=== PATIENT | female | born 1980 | race Caucasian/White ===

== ENCOUNTER 2017-07-13 11:27 | Emergency (ER) | payer OTHER ==
[~2017-07-13 11:27] MED LIST: ALBU1AER INH; AZEL137S; FLON0.053; ORSYTAB PO
[2017-07-13 12:01] VITALS: BP 130/60; PULSE 88; RESP 20; TEMP 98; O2SAT 98
[2017-07-13] MEDS ORDERED: ORPHENADRINE INJ 60 MG/2 ML AMP IM ONE (12:45)
[2017-07-13] MEDS ORDERED: KETOROLAC TROMETHAMINE 60 MG/2 ML (IM) VIAL IM ONE (12:45)
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
[2017-07-13] MEDS ORDERED: MORPHINE SULFATE 2 MG/ML INJ IM ONE (14:00)
[2017-07-13] MEDS ORDERED: ONDANSETRON ODT 4 MG TAB PO ONE (14:00)
[2017-07-13] MEDS ORDERED: HYDR-3516 PO (14:15)
[2017-07-13] MEDS ORDERED: ROBA500T PO (14:15)
[2017-07-13] MEDS ORDERED: DICL75TA PO (14:15)
== END 2017-07-13 14:46 | disposition home or self-care (01) ==
LOC: PHEFT 11:27
DX: S39.012A Strain of muscle, fascia and tendon of lower back, initial encounter (principal); M79.604 Pain in right leg; M79.605 Pain in left leg; Z86.69 Personal history of other diseases of the nervous system and sense organs; Z87.09 Personal history of other diseases of the respiratory system; X50.1XXA Overexertion from prolonged static or awkward postures, initial encounter
CPT/HCPCS: 72131; 96372; 99283; J1885; J2270; J2360

== ENCOUNTER 2018-02-11 22:22 | Observation (INO) ==
[2018-02-11] MEDS ORDERED: HYDROmorphone PF Inj 1 MG/ML Ampul IM ONE (22:55)
[2018-02-11] MEDS ORDERED: Sod Chloride 0.9% Inj 1,000 ML IV.SIG SCH (23:00)
[2018-02-11] MEDS ORDERED: HYDROmorphone PF Inj 2 MG/ML Vial IM ONE (23:15)
[2018-02-11 23:25] LABS: Baso # (Auto) 0.2 th/mm3 (0.0-0.2); Baso % (Auto) 1.4 % (0.0-2.0); Hematocrit 40.2 % (35.0-46.0); Hemoglobin 13.4 gm/dL (11.6-15.3); Lymph # (Auto) 0.5 th/mm3 (1.0-4.8); Lymph % (Auto) 3.2 % (9.0-44.0); Mean Corpuscular HGB Conc 33.2 % (32.0-36.0); Mean Corpuscular Volume 90.5 fL (80.0-100.0); Mean Platelet Volume 8.6 fL (7.0-11.0); Mono # (Auto) 0.3 th/mm3 (0.0-0.9); Mono % (Auto) 1.9 % (0.0-8.0); Neut # (Auto) 14.9 th/mm3 (1.8-7.7); Neut % (Auto) 93.5 % (16.0-70.0); Platelet Count 272 th/mm3 (150-450); Red Blood Count 4.45 mil/mm3 (4.00-5.30); Red Cell Distribution Width 12.3 % (11.6-17.2); White Blood Count 15.9 th/mm3 (4.0-11.0)
[2018-02-11 23:31] LABS: Chloride 99 meq/L (98-107); Potassium 3.8 meq/L (3.5-5.1); Sodium 134 meq/L (136-145)
[2018-02-11 23:35] LABS: Albumin 4.1 g/dL (3.4-5.0); Anion Gap 12 meq/L (5-15); Blood Urea Nitrogen 9 mg/dL (7-18); Glucose,Random 112 mg/dL (74-106)
[2018-02-11 23:37] LABS: Activated Partial Thrombo Time 26.5 sec (24.3-30.1); Prothrombin Time 10.5 sec (9.8-11.6)
[2018-02-11 23:38] LABS: Alanine Aminotransferase 21 U/L (10-53); Aspartate Aminotransferase 12 U/L (15-37); Glomerular Filtration Rate Greater Than 89 mL/min (>89)
[2018-02-11 23:39] LABS: Total Protein 7.8 g/dL (6.4-8.2)
[2018-02-11 23:41] LABS: Alkaline Phosphatase 64 U/L (45-117)
[2018-02-12] MEDS ORDERED: Bisacodyl 10 MG Supp RECTAL PRN (01:03)
[2018-02-12] MEDS ORDERED: HYDROmorphone PF Inj 2 MG/ML Vial IV.PUSH PRN (01:04)
[2018-02-12] MEDS ORDERED: Sodium Chloride 0.45 % Inj 1,000 ML IV.CONT SCH (01:15)
--- NOTE | 2018-02-12 01:20 | CT ---
EXAM DATE: 02/12/2018 12:52 AM EDT AGE/SEX: 38 years / Female INDICATIONS: Cephalgia post septoplasty. CLINICAL DATA: This is the patient's initial encounter. Patient reports that signs and symptoms have been present for 1 day and indicates a pain score of 10/10. MEDICAL/SURGICAL HISTORY: . Chondrosarcoma. Craniotomy. Septoplasty. RADIATION DOSE: 51.33 CTDI (mGy) COMPARISON: POI, MR BRAIN W AND W/O CONTRAST, 04/09/2017. . TECHNIQUE: CT of the head without contrast. Using automated exposure control and adjustment of the mA and/or kV according to patient size, radiation dose was kept as low as reasonably achievable to ob tain optimal diagnostic quality images. DICOM format image data is available electronically for revi ew and comparison. FINDINGS: Cerebrum: The ventricles are normal. There is stable encephalomalacia in the anterior right temporal lobe. No midline shift, mass lesion, hemorrhage or acute infarction. No extraaxial fluid collection s are seen. Posterior Fossa: The cerebellum and brainstem demonstrate no acute abnormality. The 4th ventricle is midline. The cerebellopontine angle is within normal limits. Extracranial: The visualized sinuses are clear. Skull: No fracture is identified. There has been prior right frontal craniotomy and right suboccipit al craniotomy. Right mastoid surgery has also been performed. There is stable appearance to the right skull base. CONCLUSION: 1. No acute intracranial abnormality is identified. 2. There are stable right skull base changes and postsurgical changes, as above. . Electronically signed by: Braden Harrison MD 02/12/2018 1:19 AM EDT
[2018-02-12 02:32] VITALS: O2SAT 97
[2018-02-12] MEDS: HYDROmorphone PF Inj 2 MG/ML Vial IV.PUSH PRN ×2 (06:20→10:26)
[2018-02-12 06:44] LABS: Chloride 103 meq/L (98-107); Potassium 3.9 meq/L (3.5-5.1); Sodium 137 meq/L (136-145)
[2018-02-12 06:47] LABS: Baso % (Auto) 0.1 % (0.0-2.0); Calcium 8.3 mg/dL (8.5-10.1); Hematocrit 32.5 % (35.0-46.0); Hemoglobin 11.6 gm/dL (11.6-15.3); Lymph # (Auto) 0.9 th/mm3 (1.0-4.8); Lymph % (Auto) 5.8 % (9.0-44.0); Mean Corpuscular HGB Conc 35.8 % (32.0-36.0); Mean Corpuscular Hemoglobin 31.5 pg (27.0-34.0); Mean Corpuscular Volume 87.8 fL (80.0-100.0); Mean Platelet Volume 8.8 fL (7.0-11.0); Mono # (Auto) 0.8 th/mm3 (0.0-0.9); Mono % (Auto) 5.2 % (0.0-8.0); Neut # (Auto) 13.6 th/mm3 (1.8-7.7); Neut % (Auto) 88.9 % (16.0-70.0); Platelet Count 208 th/mm3 (150-450); Red Cell Distribution Width 12.9 % (11.6-17.2); White Blood Count 15.3 th/mm3 (4.0-11.0)
[2018-02-12 06:48] LABS: Anion Gap 11 meq/L (5-15); Blood Urea Nitrogen 9 mg/dL (7-18); Carbon Dioxide 23.5 meq/L (21.0-32.0); Glucose,Random 117 mg/dL (74-106)
[2018-02-12 06:51] LABS: Glomerular Filtration Rate Greater Than 89 mL/min (>89)
[2018-02-12 08:24] VITALS: BP 103/62; PULSE 66; RESP 18; TEMP 96.8
[2018-02-12] MEDS ORDERED: Senna/Docusate Sodium 8.6/50 MG Tablet PO SCH (09:00)
--- NOTE | 2018-02-12 10:49 | P.HP ---
History of Present Illness Service: [facility] hospitalist Primary Care Physician: Angelika Martinez Chief Complaint: intractable nausea and pain from surgery on 02/11/18 History of Present Illness: Patient presented to er after undergoing rhinoplasty on 02/11/18 by ENT nose packing at this time,was unable to tolerate taking antibiotics or pain medication and also persistent nausea . In er had slight elevation WBC count secondary to surgery ,but did require IV hydromorph for pain and IV zofran . Admit to observation and to follow up with ent. No other significant medical issues. - Diagnosis (1) Status post rhinoplasty (2) Head and face pain (3) Nausea & vomiting Review of Systems All other systems reviewed negative except as stated in HPI PMFSH - History History Provided By: Patient - Medical History Medical History: Medical History (Last Reviewed 02/12/18 @ 10:46 by Andrew Dorman MD) History of chondrosarcoma - Surgical History Surgical History: Surgical History (Last Reviewed 02/12/18 @ 10:46 by Andrew Dorman MD) History of skin graft - Tobacco History Second Hand Smoke Exposure: No Smoking Status: Never smoker - Alcohol History How Often Do You Have a Drink Containing Alcohol: Never - Substance Use History Substance History: No History of Abuse - Travel History Recent Travel in the [place] Within the Last 8 Weeks: No Recent Travel Out of the Country Within the Last 8 Weeks: No - Immunization History Tetanus Immunization: <5 Years Medications and Allergies Active Medications: Active Medications Al Hydroxide/Mg Hydroxide (Milk Of Magnesia Liq) 30 ml PO Q12H PRN PRN Reason: Mild Constipation Bisacodyl (Dulcolax Supp) 10 mg RECTAL DAILY PRN PRN Reason: SEVERE CONSITIPATION Sodium Chloride (Ns Inj) 1,000 mls @ 0 mls/hr IV.SIG BOLUS CASH Last Infusion: 02/12/18 00:36 Dose: Infused Ceftriaxone Sodium 1,000 mg/ (Sodium Chloride) 100 mls @ 200 mls/hr IV.SIG Q12H CASH Sodium Chloride (1/2 Normal Saline Inj) 1,000 mls @ 75 mls/hr IV.CONT .[id number] CASH Last Admin: 02/12/18 02:00 Dose: 75 mls/hr Lactulose (Lactulose Liq) 30 ml PO DAILY PRN PRN Reason: SEVERE CONSITIPATION Ondansetron HCl (Zofran Inj) 4 mg IV.PUSH Q6H PRN PRN Reason: NAUSEA OR VOMITING Senna/Docusate Sodium (Haily-Colace) 1 tab PO BID CASH Last Admin: 02/12/18 09:33 Dose: Not Given Sennosides (Senokot) 17.2 mg PO Q12H PRN PRN Reason: Moderate Constipation Sodium Chloride (Ns Flush) 2 ml IV.FLUSH PRN PRN PRN Reason: FLUSH AFTER USING IV ACCESS Allergies Allergy/AdvReac Type Severity Reaction Status Date / Time No Known Allergies Allergy Unknown unknown Uncoded 02/11/18 22:29 Home Medications Medication Instructions Recorded Confirmed Type azelastine-fluticasone 1 spray INTRANASAL BID 02/11/18 02/11/18 History cefprozil 250 mg PO Q12H 02/11/18 02/11/18 History hydrocodone-acetaminophen [[place]] 1 tab PO Q4-6H PRN 02/11/18 02/11/18 History ondansetron [Zofran ODT] 4 mg PO Q6-8H PRN 02/11/18 02/11/18 History Exam Vital signs: Vital Signs 02/11/18 22:29 02/11/18 22:53 02/12/18 00:34 Temperature 98.5 F Pulse Rate 70 72 68 Respiratory Rate 18 20 18 Blood Pressure 130/82 118/81 114/72 Pulse Oximetry 100 99 95 02/12/18 02:28 02/12/18 08:00 Temperature 97.1 F L 96.8 F L Pulse Rate 68 66 Respiratory Rate 16 18 Blood Pressure 107/60 103/62 Pulse Oximetry 97 97 Intake & Output 02/11/18 02/12/18 02/12/18 18:59 06:59 18:59 Intake Total 1300 / 1300 Balance 1300 / 1300 Weight 64.9 kg Intake: IV 1100 / 1100 NS Inj 1,000 ML @ Wide Open IV. 1000 / 1000 SIG [facility] Rx#:[id number] Rocephin Inj 2,000 MG In NS Inj 100 / 100 100 ML @ 200 mls/hr IV.SIG ONCE ONE Rx#:[id number] Oral 200 / 200 Other: # Voids 3 Date of Last Bowel Movement 02/11/18 Weight On Admission 64.9 kg Narrative: GENERAL: SKIN: Warm and dry. HEAD: Normocephalic. Nose swelling packed from surgery EYES: No scleral icterus. No injection or drainage. NECK: Supple, trachea midline. No JVD or lymphadenopathy. CARDIOVASCULAR: Regular rate and rhythm without murmurs, gallops, or rubs. RESPIRATORY: Breath sounds equal bilaterally. No accessory muscle use. GASTROINTESTINAL: Abdomen soft, non-tender, nondistended. MUSCULOSKELETAL: No cyanosis, or edema. BACK: Nontender without obvious deformity. No CVA tenderness. Results - Labs CBC & Chem 7: 02/12/18 05:57 02/12/18 05:57 Labs: Laboratory Results - last 24 hr 02/11/18 02/11/18 02/11/18 23:00 23:00 23:00 CBC w Diff Auto diff final WBC 15.9 H RBC 4.45 Hgb 13.4 Hct 40.2 MCV 90.5 MCH 30.0 MCHC 33.2 RDW 12.3 Plt Count 272 MPV 8.6 Neut % (Auto) 93.5 H Lymph % (Auto) 3.2 L [place] % (Auto) 1.9 Eos % (Auto) 0.0 Baso % (Auto) 1.4 Neut # (Auto) 14.9 H Lymph # (Auto) 0.5 L [place] # (Auto) 0.3 Eos # (Auto) 0.0 Baso # (Auto) 0.2 WBC Differential . Differential Comment . PT 10.5 INR 1.0 APTT 26.5 Sodium 134 L Potassium 3.8 Chloride 99 Carbon Dioxide 23.0 Anion Gap 12 BUN 9 Creatinine 0.71 Estimated GFR Greater than 89 Random Glucose 112 H Calcium 9.0 Total Bilirubin 1.0 AST 12 L ALT 21 Alkaline Phosphatase 64 Total Protein 7.8 Albumin 4.1 02/12/18 02/12/18 05:57 05:57 CBC w Diff Auto diff final WBC 15.3 H RBC 3.70 L Hgb 11.6 Hct 32.5 L MCV 87.8 MCH 31.5 MCHC 35.8 RDW 12.9 Plt Count 208 MPV 8.8 Neut % (Auto) 88.9 H Lymph % (Auto) 5.8 L [place] % (Auto) 5.2 Eos % (Auto) 0.0 Baso % (Auto) 0.1 Neut # (Auto) 13.6 H Lymph # (Auto) 0.9 L [place] # (Auto) 0.8 Eos # (Auto) 0.0 Baso # (Auto) 0.0 WBC Differential . Differential Comment . PT INR APTT Sodium 137 Potassium 3.9 Chloride 103 Carbon Dioxide 23.5 Anion Gap 11 BUN 9 Creatinine 0.61 Estimated GFR Greater than 89 Random Glucose 117 H Calcium 8.3 L Total Bilirubin AST ALT Alkaline Phosphatase Total Protein Albumin - Imaging Impressions Head CT 02/12/18 00:35 CONCLUSION: 1. No acute intracranial abnormality is identified. 2. There are stable right skull base changes and postsurgical changes, as above. . Caprini VTE Risk Assessment Caprini VTE Risk Assessment: No/Low Risk (score <= 1) Caprini Risk Assessment Model: Point Value = 1 Point Value = 2 Point Value = 3 Point Value = 5 Age 41-60 Minor surgery BMI > 25 kg/m2 Swollen legs Varicose veins or History of unexplained or recurrent spontaneous Oral contraceptives or hormone replacement Sepsis (< 1 month) Serious lung disease, including pneumonia (< 1 month) Abnormal pulmonary function Acute myocardial infarction Congestive heart failure (< 1 month) History of inflammatory bowel disease Medical patient at bed rest Age 61-74 Arthroscopic surgery Major open surgery (> 45 min) Laparoscopic surgery (> 45 min) Malignancy Confined to bed (> 72 hours) Immobilizing plaster cast Central venous access Age >= 75 History of VTE Family history of VTE Factor V Leiden Prothrombin [id number] Lupus anticoagulant Anticardiolipin antibodies Elevated serum homocysteine Heparin-induced thrombocytopenia Other congenital or acquired thrombophilia Stroke (< 1 month) Elective arthroplasty Hip, pelvis, or leg fracture Acute spinal cord injury (< 1 month) Prophylaxis Regimen: Total Risk Factor Score Risk Level Prophylaxis Regimen 0-1 Low Early ambulation 2 Moderate Order ONE of the following: *Sequential Compression Device (SCD) *Heparin 5000 units SQ BID 3-4 Higher Order ONE of the following medications: *Heparin 5000 units SQ TID *Enoxaparin/Lovenox 40 mg SQ daily (WT < 150 kg, CrCl > 30 mL/min) *Enoxaparin/Lovenox 30 mg SQ daily (WT < 150 kg, CrCl > 10-29 mL/min) *Enoxaparin/Lovenox 30 mg SQ BID (WT < 150 kg, CrCl > 30 mL/min) AND/OR *Sequential Compression Device (SCD) 5 or more Highest Order ONE of the following medications: *Heparin 5000 units SQ TID (Preferred with Epidurals) *Enoxaparin/Lovenox 40 mg SQ daily (WT < 150 kg, CrCl > 30 mL/min) *Enoxaparin/Lovenox 30 mg SQ daily (WT < 150 kg, CrCl > 10-29 mL/min) *Enoxaparin/Lovenox 30 mg SQ BID (WT < 150 kg, CrCl > 30 mL/min) AND *Sequential Compression Device (SCD) Assessment and Plan - Assessment (1) Status post rhinoplasty Code(s): Z98.890 - Other specified postprocedural states Status: Acute Plan: discussed with ENT to discharge and to see them now for follow up has prescription for hydrocodone and antibiotics at home and also dissolving zofran (2) Head and face pain Code(s): R51 - Headache Status: Acute Plan: continue current medications (3) Nausea & vomiting Code(s): R11.2 - Nausea with vomiting, unspecified Status: Acute Plan: continue zofran - Plan follow up with ent and primary care
--- NOTE | 2018-02-12 10:51 | P.PNADD ---
Addendum to Inpatient Note Additional information: Patient had CT scan head and showed s/p surgery no acute changes,wbc at 15 will recheck as out patient,repeat bmp unremarkable.
--- NOTE | 2018-02-12 21:37 | ED ---
HPI General Chief complaint: Nausea/Vomiting/Diarrhea Stated complaint: Post op complications/N/V Time Seen by Provider: 02/11/18 22:36 Source: patient Mode of arrival: ambulatory Limitations: no limitations History of Present Illness HPI Narrative: Patient presents with history of septoplasty at 830 this a.m.. Patient has had persistent nausea and vomiting and has unable to take antibiotics prescribed. Patient comes in with increasing mastoid pain bilaterally. Patient has had constant bleeding from anterior and posterior areas. Patient has had unable to take oral fluids or medications prior to arrival. Related Data Home Medications Medication Instructions Recorded Confirmed azelastine-fluticasone 1 spray INTRANASAL BID 02/11/18 02/11/18 cefprozil 250 mg PO Q12H 02/11/18 02/11/18 hydrocodone-acetaminophen [[place]] 1 tab PO Q4-6H PRN 02/11/18 02/11/18 ondansetron [Zofran ODT] 4 mg PO Q6-8H PRN 02/11/18 02/11/18 Allergies Allergy/AdvReac Type Severity Reaction Status Date / Time No Known Allergies Allergy Unknown unknown Uncoded 02/11/18 22:29 Review of Systems ROS: all other systems reviewed are negative [facility] Medical History Medical History History of chondrosarcoma (Acute) Surgical History Surgical History History of skin graft (Acute) Social History Social History Substance History: No History of Abuse Second Hand Smoke Exposure: No Smoking Status: Never smoker How Often Do You Have a Drink Containing Alcohol: Never Recent Travel in [facility] within the Last 8 Weeks: No Recent Out of Country Travel within the Last 8 Weeks: No Immunization History Tetanus Immunization: <5 Years Exam Narrative Exam Narrative: GENERAL: Alert and oriented but in severe pain to maxillary area bilaterally. regionSKIN: Focused skin assessment warm/dry. HEAD: Atraumatic. Normocephalic. EYES: Pupils equal and round. No scleral icterus. No injection or drainage. ENT: Anterior and posterior nasal bleeding no discharge. Bilateral swelling of nasal septum with obstruction NECK: Trachea midline. No JVD. No adenitis CARDIOVASCULAR: Regular rate and rhythm. No murmur appreciated. RESPIRATORY: No accessory muscle use. Clear to auscultation. Breath sounds equal bilaterally. GASTROINTESTINAL: Abdomen soft, non-tender, nondistended. Hepatic and splenic margins not palpable. Moderate drop with postural BP check. Course Initial Documented Vital Signs Temperature 98.5 F 02/11/18 22:29 Pulse Rate 70 02/11/18 22:29 Respiratory Rate 18 02/11/18 22:29 Blood Pressure 130/82 02/11/18 22:29 Pulse Oximetry 100 02/11/18 22:29 Last Documented Vital Signs Temperature 96.8 F L 02/12/18 08:00 Pulse Rate 66 02/12/18 08:00 Respiratory Rate 18 02/12/18 08:00 Blood Pressure 103/62 02/12/18 08:00 Pulse Oximetry 97 02/12/18 08:00 Medical Decision Making MDM Narrative Medical decision making narrative: Patient has leukocytosis consistent with sinusitis. Patient unable to take antibiotics secondary to persistent nausea and vomiting since discharge. Patient has significant pain and discomfort to maxillary region bilaterally consistent with sinusitis. Patient also has anterior and posterior bleeding: Status post nasal surgery. Patient given Rocephin and admitted for evaluation by ENT. Medical Screen Exam Complete: Yes Emergency Medical Condition: Yes Lab Data Result diagrams: 02/12/18 05:57 02/12/18 05:57 POC Results POC Urine Results Negative Lab Results 02/11/18 02/11/18 02/11/18 Range/Units 23:00 23:00 23:00 CBC w Diff Auto diff final WBC 15.9 H (4.0-11.0) th/mm3 RBC 4.45 (4.00-5.30) mil/mm3 Hgb 13.4 (11.6-15.3) gm/dL Hct 40.2 (35.0-46.0) % MCV 90.5 (80.0-100.0) fL MCH 30.0 (27.0-34.0) pg MCHC 33.2 (32.0-36.0) % RDW 12.3 (11.6-17.2) % Plt Count 272 (150-450) th/mm3 MPV 8.6 (7.0-11.0) fL Neut % (Auto) 93.5 H (16.0-70.0) % Lymph % (Auto) 3.2 L (9.0-44.0) % [place] % (Auto) 1.9 (0.0-8.0) % Eos % (Auto) 0.0 (0.0-4.0) % Baso % (Auto) 1.4 (0.0-2.0) % Neut # (Auto) 14.9 H (1.8-7.7) th/mm3 Lymph # (Auto) 0.5 L (1.0-4.8) th/mm3 [place] # (Auto) 0.3 (0.0-0.9) th/mm3 Eos # (Auto) 0.0 (0.0-0.4) th/mm3 Baso # (Auto) 0.2 (0.0-0.2) th/mm3 WBC Differential . Differential Comment . PT 10.5 (9.8-11.6) sec INR 1.0 Ratio APTT 26.5 (24.3-30.1) sec Sodium 134 L (136-145) meq/L Potassium 3.8 (3.5-5.1) meq/L Chloride 99 (98-107) meq/L Carbon Dioxide 23.0 (21.0-32.0) meq/L Anion Gap 12 (5-15) meq/L BUN 9 (7-18) mg/dL Creatinine 0.71 (0.50-1.00) mg/dL Estimated GFR Greater than 89 (>89) mL/min Random Glucose 112 H (74-106) mg/dL Calcium 9.0 (8.5-10.1) mg/dL Total Bilirubin 1.0 (0.2-1.0) mg/dL AST 12 L (15-37) U/L ALT 21 (10-53) U/L Alkaline Phosphatase 64 (45-117) U/L Total Protein 7.8 (6.4-8.2) g/dL Albumin 4.1 (3.4-5.0) g/dL 02/12/18 02/12/18 Range/Units 05:57 05:57 CBC w Diff Auto diff final WBC 15.3 H (4.0-11.0) th/mm3 RBC 3.70 L (4.00-5.30) mil/mm3 Hgb 11.6 (11.6-15.3) gm/dL Hct 32.5 L (35.0-46.0) % MCV 87.8 (80.0-100.0) fL MCH 31.5 (27.0-34.0) pg MCHC 35.8 (32.0-36.0) % RDW 12.9 (11.6-17.2) % Plt Count 208 (150-450) th/mm3 MPV 8.8 (7.0-11.0) fL Neut % (Auto) 88.9 H (16.0-70.0) % Lymph % (Auto) 5.8 L (9.0-44.0) % [place] % (Auto) 5.2 (0.0-8.0) % Eos % (Auto) 0.0 (0.0-4.0) % Baso % (Auto) 0.1 (0.0-2.0) % Neut # (Auto) 13.6 H (1.8-7.7) th/mm3 Lymph # (Auto) 0.9 L (1.0-4.8) th/mm3 [place] # (Auto) 0.8 (0.0-0.9) th/mm3 Eos # (Auto) 0.0 (0.0-0.4) th/mm3 Baso # (Auto) 0.0 (0.0-0.2) th/mm3 WBC Differential . Differential Comment . PT (9.8-11.6) sec INR Ratio APTT (24.3-30.1) sec Sodium 137 (136-145) meq/L Potassium 3.9 (3.5-5.1) meq/L Chloride 103 (98-107) meq/L Carbon Dioxide 23.5 (21.0-32.0) meq/L Anion Gap 11 (5-15) meq/L BUN 9 (7-18) mg/dL Creatinine 0.61 (0.50-1.00) mg/dL Estimated GFR Greater than 89 (>89) mL/min Random Glucose 117 H (74-106) mg/dL Calcium 8.3 L (8.5-10.1) mg/dL Total Bilirubin (0.2-1.0) mg/dL AST (15-37) U/L ALT (10-53) U/L Alkaline Phosphatase (45-117) U/L Total Protein (6.4-8.2) g/dL Albumin (3.4-5.0) g/dL Imaging Data Radiologist's impression: Head CT 02/12/18 00:35 CONCLUSION: 1. No acute intracranial abnormality is identified. 2. There are stable right skull base changes and postsurgical changes, as above. . Discharge Plan Discharge Disposition Patient Disposition: 01 Discharge Home Discharge Condition Condition: Good Discharge Order Discharge Orders: Discharge Order (Routine); Ordered 02/12/18 Ordered By: Andrew Dorman Discharge Details Anticipated Discharge Date: 02/12/18 Discharge Comment: patient to see Dr. Rizvi now after discharge and continue medication. Patient admitted to 23-hour care for sinusitis and treatment with IV antibiotics. Diagnosis: Sinusitis, acute maxillary Physicians Team ED Provider: Danilo Head Primary Care Provider: Angelika Martinez Attending Provider: Andrew Dorman Other Providers: Kamari Blackburn Discharge Interventions Interventions: ED Discharge Assessment Last Done: 02/12/18 01:55 Status ED Status: Left Department Discharge Information Discharge Date/Time: 02/12/18 01:57
== END 2018-02-12 11:00 | disposition home or self-care (01) ==
LOC: PHEDA 22:22 → PHED 22:22 → PH3 02-12 01:56
PROVIDERS: ADMIT Internal Medicine; ATTEND Internal Medicine